=== PATIENT | male | born 1955 | race Caucasian/White ===

== ENCOUNTER 2018-07-23 09:45 | Emergency (ER) | payer OTHER ==
[~2018-07-23] VITALS: Ht 182.9 cm; Wt 119.8 kg
[~2018-07-23 09:45] MED LIST: ALLO300 PO; ALPHA LIPOIC A600 MG PO; AMLO10 PO; AMLO5 PO; ANDROGEL1.25 GM TD; ANDROGEL75 GM; ANDROGEL75 GM TD; ASCO250CH PO; ASPI81CH PO; ATOR20 PO; CORYDALIS PO; DOXA2; HYDCHL25 PO; HYDMOR4 PO; INFUMORPH IM; Inspra50 MG PO; Isosorbide Mono30 MG PO; LAVAP17G PO; LEVO-T25 MCG PO; Lyrica225 MG PO; MAGNESIUM400 MG PO; MAGOXI400 PO; METO25ER PO; MIRALAX17 GM PO; MORPHINE PUMP; Nitroglycerin0.4 MG SL; OMEG1CAP30 PO; OXYC5; Omega 3 Fish O1 EACH PO; PANT40 PO; PREG200 PO; Prednisone20 MG PO; SPIR50 PO; Synthroid25 MCG PO; VITAMIN C 500500 MG PO; [UNRECOGNIZED DRUG - OTHER] PO; [UNRECOGNIZED DRUG - OTHER] PO
[2018-07-23 11:25] LABS: BASOPHILS ABSOLUTE AUTO 0.07 K/mm3 (0.00-0.23); BASOPHILS PERCENT AUTO 1 % (0-2); EOSINOPHILS PERCENT AUTO 3 % (0-6); Hematocrit 47.9 % (37.0-53.0); Hemoglobin 15.3 g/dL (13.5-17.5); IMMATURE GRAN ABSOLUTE AUTO 0.02 K/mm3 (0.00-0.10); IMMATURE GRAN PERCENT AUTO 0 % (0-1); LYMPHOCYTES ABSOLUTE AUTO 1.74 K/mm3 (0.84-5.20); LYMPHOCYTES PERCENT AUTO 28 % (21-46); MONOCYTES ABSOLUTE AUTO 0.69 K/mm3 (0.16-1.47); MONOCYTES PERCENT AUTO 11 % (4-13); Mean Corpuscular HGB 30.1 pg (26.0-34.0); Mean Corpuscular HGB Conc 31.9 g/dL (31.5-36.5); Mean Corpuscular Volume 94 fL (80-100); Mean Platelet Volume 10.4 fL (9.1-12.4); NEUTROPHILS ABSOLUTE AUTO 3.53 K/mm3 (1.96-9.15); NEUTROPHILS PERCENT AUTO 57 % (41-73); Platelet Count 201 K/mm3 (150-400); RDW Coefficient Variation 13.6 % (11.7-14.2); RDW Standard Deviation 47.3 fL (35.1-46.3); Red Blood Cell Count 5.09 M/mm3 (4.30-5.90); White Blood Cell Count 6.25 K/mm3 (4.00-11.30)
[2018-07-23 11:37] LABS: International Normalized Ratio 1.05; Prothrombin Time Results 10.8 Sec (9.7-11.5)
[2018-07-23 11:43] LABS: Alanine Aminotransfer (ALT/SGP 53 U/L (12-78); Albumin, Blood 3.6 g/dL (3.4-5.0); Alk Phos 67 U/L (50-136); Anion Gap 9 mmol/L (6-16); Aspartate Aminotrans (AST/SGOT 37 U/L (12-37); Bilirubin, Total 0.8 mg/dL (0.1-1.0); Blood Urea Nitrogen 14 mg/dL (8-24); Bun/Creatinine Ratio 17.1 (12.0-20.0); CO2, Blood 27 mmol/L (21-32); Calcium, Blood 8.7 mg/dL (8.5-10.1); Chloride, Blood 103 mmol/L (98-108); Creatinine, Blood 0.82 mg/dL (0.60-1.20); Globulin, Blood 3.6 g/dL (2.2-4.0); Glomerular Filtration Rate >60 (60-); Glucose, Blood 95 mg/dL (70-99); Potassium, Blood 4.1 mmol/L (3.5-5.5); Sodium, Blood 139 mmol/L (136-145); Total Protein, Blood 7.2 g/dL (6.4-8.2)
[2018-07-23 13:24] LABS: LDL/HDL RATIO 2.7; Very Low Density Lipoprot Chol 22 mg/dL (6-32)
[2018-07-23 13:25] LABS: CHOL/HDL RATIO 4.1; Cholesterol 199 mg/dL (50-200); HDL Cholesterol 48 mg/dL (>39); Low Density Lipoprotein Chol 129 mg/dL (0-110); Triglycerides 110 mg/dL (30-160)
== END 2018-07-23 15:16 | disposition home or self-care (01) ==
LOC: ER 09:45 → MEDS 09:46 → ER 15:16
PROVIDERS: Family Medicine; Physician Assistant
DX: R29.898 Other symptoms and signs involving the musculoskeletal system (principal); I10 Essential (primary) hypertension; G89.29 Other chronic pain; M54.5 Low back pain; Z88.5 Allergy status to narcotic agent; Z88.8 Allergy status to other drugs, medicaments and biological substances; Z79.899 Other long term (current) drug therapy
CPT/HCPCS: 70450; 80053; 80061; 84484; 85025; 85610; 93005; 93010; 93308; 93321; 96374; 99284-25; J0360

== ENCOUNTER 2019-08-07 18:43 | Emergency (ER) | payer OTHER ==
[~2019-08-07] VITALS: Ht 182.9 cm; Wt 117.9 kg
[~2019-08-07 18:43] MED LIST changes: -ANDROGEL75 GM TD; +ANDROGEL75 GM TOP; +Ascorbic Acid500 M2 PO; +Aspir 8181 MG PO; -LEVO-T25 MCG PO; +LEVO-T50 MC1 PO; -Lyrica225 MG PO; +PREG150 PO; -VITAMIN C 500500 MG PO
[2019-08-07 19:30] LABS: BASOPHILS ABSOLUTE AUTO 0.06 K/mm3 (0.00-0.23); BASOPHILS PERCENT AUTO 1 % (0-2); EOSINOPHILS PERCENT AUTO 3 % (0-6); Hematocrit 48.2 % (37.0-53.0); Hemoglobin 16.1 g/dL (13.5-17.5); IMMATURE GRAN ABSOLUTE AUTO 0.01 K/mm3 (0.00-0.10); IMMATURE GRAN PERCENT AUTO 0 % (0-1); LYMPHOCYTES PERCENT AUTO 26 % (21-46); MONOCYTES PERCENT AUTO 10 % (4-13); Mean Corpuscular HGB 31.1 pg (26.0-34.0); Mean Corpuscular HGB Conc 33.4 g/dL (31.5-36.5); Mean Corpuscular Volume 93 fL (80-100); NEUTROPHILS ABSOLUTE AUTO 3.68 K/mm3 (1.96-9.15); NEUTROPHILS PERCENT AUTO 60 % (41-73); Platelet Count 213 K/mm3 (150-400); RDW Coefficient Variation 13.3 % (11.7-14.2); RDW Standard Deviation 45.6 fL (35.1-46.3); Red Blood Cell Count 5.17 M/mm3 (4.30-5.90); White Blood Cell Count 6.15 K/mm3 (4.00-11.30)
[2019-08-07] MEDS ORDERED: Prednisone1 MG PO (19:40)
[2019-08-07] MEDS ORDERED: VALACYCLOVIR1000 MG PO (19:40)
[2019-08-07] MEDS ORDERED: OPTLUBOPOB LEFTEYE (19:40)
[2019-08-07 19:48] LABS: Prothrombin Time Results 10.6 Sec (9.7-11.5)
[2019-08-07 19:56] LABS: Alanine Aminotransfer (ALT/SGP 45 U/L (12-78); Albumin, Blood 3.8 g/dL (3.4-5.0); Alk Phos 74 U/L (50-136); Anion Gap 6 mmol/L (6-16); Aspartate Aminotrans (AST/SGOT 37 U/L (12-37); Bilirubin, Total 0.4 mg/dL (0.1-1.0); Blood Urea Nitrogen 17 mg/dL (8-24); Bun/Creatinine Ratio 21.5 (12.0-20.0); CO2, Blood 29 mmol/L (21-32); Chloride, Blood 103 mmol/L (98-108); Creatinine, Blood 0.79 mg/dL (0.60-1.20); Globulin, Blood 3.7 g/dL (2.2-4.0); Glomerular Filtration Rate >60 (60-); Glucose, Blood 175 mg/dL (70-99); Potassium, Blood 3.7 mmol/L (3.5-5.5); Sodium, Blood 138 mmol/L (136-145); Total Protein, Blood 7.5 g/dL (6.4-8.2)
[2019-08-07] MEDS ORDERED: TESTOSTERONE75 G1 TOP (20:01)
== END 2019-08-07 20:33 | disposition home or self-care (01) ==
LOC: ER 18:43
PROVIDERS: Physician Assistant
DX: G51.0 Bell's palsy (principal); Z88.5 Allergy status to narcotic agent; Z88.8 Allergy status to other drugs, medicaments and biological substances; Z79.899 Other long term (current) drug therapy; Z79.82 Long term (current) use of aspirin
CPT/HCPCS: 36415; 70450; 80053; 82947; 85025; 85610; 93005; 93010; 99284-25; J7512

== ENCOUNTER → 2021-07-16 | Outpatient (CLI) | payer MEDICARE ==
[~2021-07-16] MED LIST changes: +OPTLUBOPOB LEFTEYE; +Prednisone1 MG PO; +TESTOSTERONE75 G1 TOP; +VALACYCLOVIR1000 MG PO
== END ==
LOC: LAB SHORT 17:41
DX: L08.9 Local infection of the skin and subcutaneous tissue, unspecified (principal)
CPT/HCPCS: 87070; 87077; 87147; 87186; 87205

== ENCOUNTER 2022-07-20 19:29 | Inpatient (IN) | payer MEDICARE ==
[~2022-07-20] VITALS: Ht 180.3 cm; Wt 117.5 kg
[~2022-07-20 19:29] MED LIST changes: +EPLE25 PO; -Inspra50 MG PO
[2022-07-20] MEDS ORDERED: EPLERENONE25 M2 PO (19:56)
[2022-07-20] MEDS ORDERED: OXYC5 (19:56)
[2022-07-20] MEDS ORDERED: METOPROLOL SUCC25 MG PO (19:57)
[2022-07-20 20:01] LABS: BASOPHILS ABSOLUTE AUTO 0.05 K/mm3 (0.00-0.23); BASOPHILS PERCENT AUTO 0 % (0-2); EOSINOPHILS ABSOLUTE AUTO 0.15 K/mm3 (0.00-0.68); EOSINOPHILS PERCENT AUTO 1 % (0-6); Hematocrit 51.1 % (37.0-53.0); Hemoglobin 17.1 g/dL (13.5-17.5); IMMATURE GRAN PERCENT AUTO 1 % (0-1); LYMPHOCYTES ABSOLUTE AUTO 0.44 K/mm3 (0.84-5.20); LYMPHOCYTES PERCENT AUTO 3 % (21-46); MONOCYTES ABSOLUTE AUTO 1.23 K/mm3 (0.16-1.47); MONOCYTES PERCENT AUTO 7 % (4-13); Mean Corpuscular HGB 29.8 pg (26.0-34.0); Mean Corpuscular HGB Conc 33.5 g/dL (31.5-36.5); Mean Corpuscular Volume 89 fL (80-100); Mean Platelet Volume 10.4 fL (9.1-12.4); NEUTROPHILS ABSOLUTE AUTO 15.03 K/mm3 (1.96-9.15); NEUTROPHILS PERCENT AUTO 88 % (41-73); Platelet Count 201 K/mm3 (150-400); RDW Standard Deviation 45.2 fL (35.1-46.3); Red Blood Cell Count 5.73 M/mm3 (4.30-5.90)
[2022-07-20 20:48] LABS: Influenza A, PCR NEGATIVE (NEGATIVE); Influenza B, PCR NEGATIVE (NEGATIVE); Resp Syncytial Virus, PCR NEGATIVE (NEGATIVE); SARS-Cov-2 (COVID-19) PCR, MMC NEGATIVE (NEGATIVE)
[2022-07-20 20:59] LABS: Source, Urine Clean Catch
[2022-07-20 21:09] LABS: Albumin, Blood 3.8 g/dL (3.4-5.0); Bun/Creatinine Ratio 24.7 (12.0-20.0); Calcium, Blood 9.1 mg/dL (8.5-10.1); Creatinine, Blood 0.81 mg/dL (0.60-1.20); Globulin, Blood 3.8 g/dL (2.2-4.0); Potassium, Blood 3.8 mmol/L (3.5-5.5); Total Protein, Blood 7.6 g/dL (6.4-8.2)
[2022-07-20 21:25] LABS: Appearance, Urine Clear (Clear); Bilirubin, Urine Neg (Neg); Blood, Urine 2+ (Neg); Color, Urine Yellow (P-Yellow); Glucose Qualitative, Urine Neg (Neg); Ketones, Urine Neg (Neg); Leukocyte Esterase, Urine 1+ (Neg); Nitrite, Urine Neg (Neg); Protein, Urine 2+ (Neg); Urobilinogen, Urine NORM (Normal)
[2022-07-20 21:34] LABS: Hyaline Casts 0-2 /lpf (0-2); Mucus Light (0-Heavy)
[2022-07-20 21:35] LABS: Bacteria Mod /hpf; Squamous Epithelial Cells Rare /hpf (Few)
[2022-07-21 05:09] LABS: BASOPHILS ABSOLUTE AUTO 0.04 K/mm3 (0.00-0.23); BASOPHILS PERCENT AUTO 0 % (0-2); EOSINOPHILS PERCENT AUTO 0 % (0-6); Hematocrit 48.3 % (37.0-53.0); IMMATURE GRAN PERCENT AUTO 1 % (0-1); LYMPHOCYTES ABSOLUTE AUTO 0.43 K/mm3 (0.84-5.20); LYMPHOCYTES PERCENT AUTO 3 % (21-46); MONOCYTES ABSOLUTE AUTO 1.08 K/mm3 (0.16-1.47); MONOCYTES PERCENT AUTO 7 % (4-13); Mean Corpuscular HGB 29.5 pg (26.0-34.0); Mean Corpuscular HGB Conc 33.1 g/dL (31.5-36.5); Mean Corpuscular Volume 89 fL (80-100); Mean Platelet Volume 9.9 fL (9.1-12.4); NEUTROPHILS ABSOLUTE AUTO 13.67 K/mm3 (1.96-9.15); NEUTROPHILS PERCENT AUTO 89 % (41-73); Platelet Count 154 K/mm3 (150-400); RDW Coefficient Variation 14.1 % (11.7-14.2); RDW Standard Deviation 46.1 fL (35.1-46.3); Red Blood Cell Count 5.42 M/mm3 (4.30-5.90); White Blood Cell Count 15.32 K/mm3 (4.00-11.30)
[2022-07-21 05:35] LABS: Bun/Creatinine Ratio 25.9 (12.0-20.0); Calcium, Blood 8.3 mg/dL (8.5-10.1); Creatinine, Blood 0.85 mg/dL (0.60-1.20); Potassium, Blood 3.6 mmol/L (3.5-5.5)
--- NOTE | 2022-07-21 05:50 | NUR ---
Patient admitted for Severe Sepsis, Lactate was 2.4 but trending down, last result 1.8mmol/L. Vitals stable, afebrile, when arriving to medical floor. Patient reports pain is well controlled at this time. Patient has an implanted morphine pump. Vancomycin IV administred, pharmacy to dose ABX. Vitals stable this shift, patient slept comfortably, until early AM. Patient called c/o severe pain, Oxycodone & Toradol given, PRN Tylenol given. Pain is moderate-severe. Will continue plan of care.
--- NOTE | 2022-07-21 18:18 | NUR ---
SHIFT SUMMARY- PT IS A/O, PLESANT AND COOPERATIVE. HE IS EATING AND DRINKING WELL. HE IS RECIEVING PAIN MEDICATIONS NEEDED. HIS AND SEVERAL FIRENDS WERE IN THIS SHIFT TO VISIT. THE PT WAS ABLE TO AMBULATE TO THE RESTROOM. HE GAVE HIMSELF A SPONGE BATH THIS SHIFT. HE IS RECIEVING IV ABX. HE RECIEVED AN ULTRASOUND ON HIS LYMPHNODE. HIS BED IS IN THE LOW POSITION AND CALL LIGHT IS WITHIN REACH.
[2022-07-21 22:42] LABS: Vancomycin, Trough 9.5 ug/mL (5.0-10.0)
--- NOTE | 2022-07-22 04:48 | NUR ---
NIGHTSHIFT SUMMARY Patient continues to complain of chronic back pain & severe pain in RLE. Redness & warm observed in calf/right leg. Denies pain in LLE, no redness/warmth noted in LLE. Controlled pain with Oxycodone, Toradol, & Tylenol. Vanco troughs drawn, pharmacy to dose. Administred Vanco IV this shift. Vitals stable, afebrile, sats stable on RA. Will continue plan of care.
[2022-07-22 10:09] LABS: Hematocrit 46.1 % (37.0-53.0); Hemoglobin 15.1 g/dL (13.5-17.5); Mean Corpuscular HGB 29.8 pg (26.0-34.0); Mean Corpuscular HGB Conc 32.8 g/dL (31.5-36.5); Mean Corpuscular Volume 91 fL (80-100); Mean Platelet Volume 10.6 fL (9.1-12.4); Platelet Count 149 K/mm3 (150-400); RDW Coefficient Variation 14.1 % (11.7-14.2); RDW Standard Deviation 46.9 fL (35.1-46.3); Red Blood Cell Count 5.07 M/mm3 (4.30-5.90); White Blood Cell Count 13.04 K/mm3 (4.00-11.30)
[2022-07-22 10:43] LABS: Albumin, Blood 3.1 g/dL (3.4-5.0); Anion Gap 5 mmol/L (6-16); Blood Urea Nitrogen 17 mg/dL (8-24); Bun/Creatinine Ratio 21.2 (12.0-20.0); CO2, Blood 31 mmol/L (21-32); Calcium, Blood 8.6 mg/dL (8.5-10.1); Chloride, Blood 97 mmol/L (98-108); Glomerular Filtration Rate 96 (60-); Glucose, Blood 147 mg/dL (70-99); Phosphorus, Blood 1.4 mg/dL (2.5-4.9); Potassium, Blood 4.1 mmol/L (3.5-5.5); Sodium, Blood 133 mmol/L (136-145)
--- NOTE | 2022-07-22 19:59 | NUR ---
SHIFT SUMMARY PT A&OX4 AND COOPERATIVE OF CARE. INDEPENDENT IN ROOM. PT STATED HIS PAIN HAS NOT BEEN WELL CONTROLLED SINCE ARRIVING AT HOSPTIAL. ORDERS GIVEN FOR FENTANYL AND PT'S PAIN WAS MUCH BETTER CONTROLLED. PT SLEPT FOR SEVERAL HOURS AFTER PAIN MEDICATION. PT ATE VERY LITTLE TODAY, STATED HE FELT NAUSEOUS. MEDICATED PER EMAR WITHOUT GOOD AFFECT. PT LATER VERBALIZED THAT HE THINKS HE "MIGHT FEEL BAD BECUASE HE NEEDS TO POOP". NOTIFIED AND BOWEL CARE ORDERS GIVEN. AT BEDSIDE THIS EVENING. REPORT GIVEN TO YEAST DISTILLER NURSE.
[2022-07-22 23:02] LABS: Vancomycin, Trough 11.2 ug/mL (5.0-10.0)
--- NOTE | 2022-07-23 03:50 | NUR ---
SHIFT SUMMARY NO ACUTE CHANGES TO REPORT OVERNIGHT. PT HAS CHRONIC PAIN INTERMITTENTLY T/O THE NIGHT WELL A HEADACHE. MEDICATED PER EMAR WITH EFFECT. PT HAS BEEN INDEPENDENT IN THE ROOM, MAKES NEEDS KNOWN. IV ANTIBIOTICS CONTINUED THIS SHIFT, VITALS STABLE. BED IN LOWEST POSITION, CALL LIGHT WITHIN REACH.
[2022-07-23] MEDS ORDERED: MIRALAX17 GM PO (12:22)
[2022-07-23] MEDS ORDERED: LACT PO (12:22)
[2022-07-23] MEDS ORDERED: CEPH500 PO (12:23)
--- NOTE | 2022-07-23 12:54 | NUR ---
IV REMOVED & INTACT
--- NOTE | 2022-07-23 14:04 | NUR ---
SHIFT SUMMARY PT EDUCATED ON NEW MEDS AND DC INSTRUCTIONS. PT STATES HE WILL CALL TO MAKE A FOLLOW UP APPOINTMENT. PT SHOWERED PRIOR TO DC. NO ACUTE CHANGES IN ASSESSMENT PRIOR TO DC. PT WHEELED OUT BY AIDE AND DRIVEN HOME BY FAMILY. DENIED NEED FOR FURTHER INSTRUCION PRIOR TO DC.
== END 2022-07-23 13:44 | disposition home or self-care (01) | DRG 872 ==
LOC: ER 19:29 → MEDS 23:37
PROVIDERS: Emergency Medicine; Internal Medicine; Nurse Practitioner Acute Care; ADMIT Family Medicine
DX: A41.9 Sepsis, unspecified organism (principal); L03.115 Cellulitis of right lower limb; E87.1 Hypo-osmolality and hyponatremia; E87.29 Other acidosis; R65.20 Severe sepsis without septic shock; G89.4 Chronic pain syndrome; I10 Essential (primary) hypertension; G62.9 Polyneuropathy, unspecified; E03.9 Hypothyroidism, unspecified; M54.59 Other low back pain; M10.9 Gout, unspecified; G47.33 Obstructive sleep apnea (adult) (pediatric); Z91.199 Patient's noncompliance with other medical treatment and regimen due to unspecified reason; Z98.1 Arthrodesis status; Z98.890 Other specified postprocedural states; Z79.82 Long term (current) use of aspirin; Z79.899 Other long term (current) drug therapy; Z88.8 Allergy status to other drugs, medicaments and biological substances; Z88.6 Allergy status to analgesic agent; Z88.5 Allergy status to narcotic agent
CPT/HCPCS: 0241U; 36415; 71045; 72100; 76882; 80048; 80053; 80069; 80202; 81001; 83605; 84145; 85025; 85027; 87086; 94760; 96365; 96366; 96367; 96375; 99285-25; A9270; J0696; J1650; J1885; J2405; J3010; J3370; J7030; J7050